=== PATIENT | male | born 1960 | race Caucasian/White ===

== ENCOUNTER 2018-06-15 22:46 | Observation (INO) ==
[2018-06-15] MEDS ORDERED: NS 1,000 ML IV SCH (23:30)
[2018-06-15 23:52] LABS: BASO# 0.04 X1000 (0.0-0.2); BASO% 0.3 % (0.0-0.8); EOS# 0.24 X1000 (0.0-0.7); HEMATOCRIT 49.9 % (42.0-52.0); HEMOGLOBIN 16.4 g/dL (14.0-18.0); IMM GRAN# 0.02 X1000 (0.0-0.04); IMM GRAN% 0.2 % (0.0-0.5); LYMPH# 2.02 X1000 (1.2-3.4); LYMPH% 17.1 % (20.5-51.1); MCH 29.1 PG (27-31); MCHC 32.9 g/dL (33-37); MCV 88.5 FL (81-99); MONO# 1.41 X1000 (0.11-0.59); MONO% 11.9 % (1.7-9.3); MPV 8.9 FL (7.4-10.4); NEUT# 8.09 X1000 (1.4-6.5); NEUT% 68.5 % (42.2-75.2); PLT 408 X1000 (130-400); RBC 5.64 XMIL (4.7-6.1); RDW 13.1 % (11.5-14.5); WBC 11.82 X1000 (4.8-10.8)
[2018-06-15 23:58] LABS: INR 0.95; PROTIME 13.2 Seconds (11.0-16.0); PTT 29.8 Seconds (22.3-41.8)
[2018-06-16 00:11] LABS: AGAP 14; ALBUMIN 4.7 g/dL (3.5-5.0); ALKALINE PHOSPHATASE 95 U/L (32-122); BUN 10 mg/dL (8-22); CALCIUM 9.3 mg/dL (8.8-10.2); CHLORIDE 96 mmol/L (98-107); COSMO 276; CREATININE 0.7 mg/dL (0.7-1.2); ESTIMATED GFR > 60; GLUCOSE 115 mg/dL (70-104); GOT 14 U/L (10-34); GPT 13 U/L (10-44); POTASSIUM 4.6 mmol/L (3.5-5.1); SODIUM 138 mmol/L (136-145); TCO2 28 mmol/L (25-35); TOTAL PROTEIN 8.4 g/dL (6.3-8.3)
[2018-06-16 00:25] LABS: OCCULT BLOOD 1 POSITIVE (NEGATIVE)
[2018-06-16] MEDS ORDERED: FLAGYL 500 MG/NS 500 MG/100 ML IVPB IV ONE (02:41)
[2018-06-16] MEDS ORDERED: CIPRO 400 MG/D5W 400 MG/200 ML IVPB IV ONE (02:42)
--- NOTE | 2018-06-16 02:49 | PROVIDER DOCUMENTATION ---
This chart was entered by Enedelia Mondragon Scribe, acting as scribe for Manuelito Parra DO. HPI-Abdominal Pain/GI Problem - General Chief Complaint: Rectal Bleeding Stated Complaint: MALE Time Seen by Provider: 06/15/18 23:30 Source: patient Allergies/Adverse Reactions: Patient Allergies Allergy/AdvReac Type Severity Reaction Status Date / Time No Known Allergies Allergy Verified 06/15/18 23:07 Home Medications: Home Medication List Medication Instructions Recorded Confirmed Last Taken Type Amlodipine Besylate/Benazepril 1 cap PO DAILY 06/15/18 06/15/18 Unknown History [Amlodipine-Benazepril 5-20 mg] Fluticasone/Salmet 250/50 INH 1 applicatn INH BID 06/15/18 06/15/18 Unknown History [Advair 250/50 Diskus] Gemfibrozil [Lopid] 600 mg PO DAILY 06/15/18 06/15/18 Unknown History Hydrocodone Bit/Acetaminophen 1 tab PO Q4HR 06/15/18 06/15/18 Unknown History [Hydrocodon-Acetaminophn 10-325] Ipratropium/Albuterol Sulfate 4 gm INH Q4H 06/15/18 06/15/18 Unknown History [Combivent Respimat 20-100 Mcg] Omeprazole 40 mg PO DAILY 06/15/18 06/15/18 Unknown History ROSUVAstatin [Crestor] 10 mg PO HS 06/15/18 06/15/18 Unknown History Vardenafil HCl 20 mg PO DAILY 06/15/18 06/15/18 Unknown History - History of Present Illness-ABD Nature of Presenting Problems: Pt is 57/M presenting to ED w/ rectal bleeding that has been present since this afternoon. He sts that it is bright red in the toilet and that he has not had a BM. Sts that he had been on 600mg of ibuprofen every 6 hrs since last for dental pain. Denies any ABD pain. No significant GI hx Quality of Pain: reports: none Onset/Duration: reports: this afternoon Timing: reports: still present Activities at Onset: reports: none Exposure to sick contacts?: No Modifying Factors: improves with: nothing Associated Symptoms: denies: chest pain, cough, dizziness, fever/chills, nausea, vomiting Last BM: unsure Dark Stools Present?: reports: maroon, bright red blood Rectal Bleeding: reports: bleeding without stool Rectal Pain: reports: none Emesis Description: reports: none Bruising or Bleeding Gums?: No Similar Symptoms Previously?: No Recently seen or treated by another doctor?: No Review of Systems - Adult - REVIEW OF SYSTEMS - ADULT Constitutional: reports: no symptoms reported. denies: chills, fever Eyes: reports: no symptoms reported Ears, Nose, Mouth & Throat: reports: no symptoms reported Cardiovascular: reports: no symptoms reported. denies: chest pain, edema Respiratory: reports: no symptoms reported. denies: cough, shortness of breath, wheezing Gastrointestinal: reports: rectal bleeding. denies: abdominal pain, hematemesis, diarrhea, nausea, vomiting Genitourinary: reports: no symptoms reported Musculoskeletal: reports: no symptoms reported Integumentary: reports: no symptoms reported Neurological: reports: no symptoms reported. denies: dizziness/vertigo, headache/migraines Psychiatric: reports: no symptoms reported Endocrine: reports: no symptoms reported Hematologic/Lymphatic: reports: no symptoms reported Allergic/Immunologic: reports: no symptoms reported All Other Systems: Reviewed and Negative Past History - Adult - PAST MEDICAL HISTORY-ADULT Review of Records: reports: Old Records Reviewed, Nursing Assessment Review, Medications Reviewed, Social history reviewed & non-contributory. Major Childhood Illnesses: reports: denies history Cardiovascular: reports: denies history - SOCIAL HISTORY Smoking: cigarettes Substance Use: none/never Alcohol Use Frequency: never Living Situation: family Physical Exam-General - PHYSICAL EXAM-ADULT Initial Vital Signs Reviewed: Yes - CONSTITUTIONAL General Appearance: appears well, alert, no apparent distress - EYES Eyes: PERRL/EOMI, pink conjunctivae - HEAD, EARS, NOSE, MOUTH & THROAT HENMT: normocephalic/atraumatic, moist mucous membranes, TM abnormal (L TM effusion), maxillary tenderness (R maxillary), other (pt has healing dental sites in molars, from tooth extractions) - RESPIRATORY Respiratory: chest non-tender, normal breath sounds, wheezing (expitory base wheezes and inspitory R upper lobe on R side) - CARDIOVASCULAR Cardiovascular: regular rate, rhythm - GASTROINTESTINAL (ABDOMEN) Abdominal Exam: normal bowel sounds, non tender, soft - GENITOURINARY Rectal Exam: normal rectal tone, other (maroon colored stool.). negative: black stool, blood streaked stool, decreased tone, mass, tenderness Hemoccult Exam: heme positive stool - LYMPHATIC Lymphatic: no adenopathy - MUSCULOSKELETAL Extremity: normal range of motion, non-tender, normal gait, normal inspection - SKIN Integumentary: normal color, warm/dry - NEUROLOGIC Neurologic: grossly normal - PSYCHIATRIC Psych/Mental Status: normal mood/affect, normal thought content, normal thought process, oriented x 3 Progress - PLAN OF CARE/RESULTS Progress/Plan/Lab Results: Vital Signs - 8 hr 06/15/18 23:02 Temperature 98.1 F Pulse Rate 89 Respiratory Rate 20 Blood Pressure 194/97 O2 Sat by Pulse Oximetry 92 L Orders Category Date Time Status CBC WITH ELECTRONIC DIFF [HEME] Stat Lab 06/15/18 23:30 Results COMPREHENSIVE METABOLIC PANEL [CHEM] Stat Lab 06/15/18 23:30 Received OCCULT BLOOD SCREEN STOOL PL Stat Lab 06/15/18 23:29 Uncollected PROTIME WITH INR [COAG] Stat Lab 06/15/18 23:30 Received PTT [COAG] Stat Lab 06/15/18 23:30 Received TYPE & SCREEN [BBK] Stat Lab 06/15/18 23:30 Received 0.9% Sodium Chloride Inj [Ns] 1,000 ml Med 06/15/18 23:30 Active IV 125 mls/hr GI Bleed (possible) Stat Oth 06/15/18 23:28 Ordered Result Diagrams: 06/15/18 23:30 06/15/18 23:30 - REASSESSMENT Reassessment #1 Status: improving (WITH HYDRATION/ANTIBIOTICS DISCUSSED CT-SCAN WITH PATIENT AND PATIENT HAS AGREED TO STAY IN PATIENT FOR TREATMENT) - CONSULTS/PCP/HOSPITALIST Notification #1 *Consult/PCP/Hospitalist*: DR HYMAN Time Discussed: 02:48 (ADMISSION ) Departure - Departure Date of Disposition Decision: 06/16/18 Time of Disposition Decision: 02:49 DIAGNOSIS: Acute hemorrhagic colitis Disposition: ADMITTED INPATIENT 09 Certified Medical Emergency: Emergent Condition: Stable Referrals and Follow-Ups: Bright Riddle MD [Primary Care Provider] - - Critical Care Note This patient required my direct & personal management of CC.: No Attestation - Physician/ NEEL Attestation Patient care was provided by Advanced Practice Provider:: No The physician spent face to face time with patient:: Yes Advanced Practice Provider documentation review:: Supervising physician onsite and consulted in the evaluation and care of this patient. The physician did have a face to face encounter with the patient. This chart was documented by the indicated scribe, (Enedelia Mondragon, Dean) and accurately reflects the services I performed and decisions made by me, Maunelito Parra DO, as attested by the provider's signature.
[2018-06-16] MEDS ORDERED: NICODERM PATCH TD ONE (03:12)
[2018-06-16] MEDS ORDERED: TYLENOL PO PRN ×2 (04:32→11:00)
[2018-06-16] MEDS ORDERED: NS 1,000 ML IV ONE (04:32)
[2018-06-16] MEDS ORDERED: ZOFRAN PO PRN ×2 (04:32→11:00)
--- NOTE | 2018-06-16 06:31 | Diag Imaging Result Doc PS360 ---
EXAM: CT ABD/PELVIS W/PO AND IV CON HISTORY: LOWER GI BLEED TECHNIQUE: CT abdomen and pelvis with intravenous contrast COMPARISON: None. FINDINGS: No calcified gallstones or adjacent inflammation. There is fatty infiltration of the liver. Normal spleen, pancreas, adrenal glands, and kidneys except for a 4.5 cm left lower pole renal cyst and a tiny nonspecific 5 mm nodule anteriorly in the lower right kidney. No hydronephrosis. No aortic aneurysm. Moderate atherosclerosis. No inflammation about the cecum. No abscess. There is thickening to the wall of the descending colon with mild adjacent inflammation. The urinary bladder is only moderately distended. Questionable mild thickening to the wall. Normal prostate size with small internal calcifications. No pelvic mass. Mild degenerative changes to the spine. IMPRESSION: 1.Descending colitis without free air or an adjacent abscess. 2.Fatty infiltration of the liver 3.Left renal cysts with likely a tiny right renal cyst 4.Possible cystitis 5.A preliminary report was given at 2:39 AM This exam was performed using automated exposure control, adjustment of mA or kV according to patient size, and/or use of iterative reconstruction technique. Electronically signed by Rony Sanchez 06/16/2018 6:29 AM
[2018-06-16 07:18] LABS: BASO# 0.04 X1000 (0.0-0.2); BASO% 0.4 % (0.0-0.8); EOS# 0.15 X1000 (0.0-0.7); EOS% 1.4 % (0.0-10.0); HEMATOCRIT 48.6 % (42.0-52.0); HEMOGLOBIN 16.6 g/dL (14.0-18.0); IMM GRAN# 0.02 X1000 (0.0-0.04); IMM GRAN% 0.2 % (0.0-0.5); LYMPH# 1.95 X1000 (1.2-3.4); MCHC 34.2 g/dL (33-37); MCV 87.9 FL (81-99); MONO# 1.25 X1000 (0.11-0.59); MONO% 11.5 % (1.7-9.3); MPV 8.6 FL (7.4-10.4); NEUT# 7.45 X1000 (1.4-6.5); NEUT% 68.5 % (42.2-75.2); PLT 409 X1000 (130-400); RBC 5.53 XMIL (4.7-6.1); RDW 13.1 % (11.5-14.5); WBC 10.86 X1000 (4.8-10.8)
[2018-06-16 07:32] LABS: AGAP 12; ALBUMIN 4.3 g/dL (3.5-5.0); ALKALINE PHOSPHATASE 96 U/L (32-122); BUN 7 mg/dL (8-22); CHLORIDE 100 mmol/L (98-107); COSMO 275; CREATININE 0.6 mg/dL (0.7-1.2); ESTIMATED GFR > 60; GLUCOSE 115 mg/dL (70-104); GOT 11 U/L (10-34); GPT 12 U/L (10-44); SODIUM 138 mmol/L (136-145); TCO2 27 mmol/L (25-35); TOTAL PROTEIN 7.9 g/dL (6.3-8.3)
--- NOTE | 2018-06-16 08:58 | Diag Imaging Result Doc PS360 ---
EXAM: CHEST-2 VIEWS HISTORY: r/o pna; leukocytosis TECHNIQUE: Chest two views COMPARISON: 01/30/2018 FINDINGS: The lungs are well expanded. The heart is not enlarged. The vessels are not distended. There are no infiltrates. No pleural effusions. IMPRESSION: No pneumonia Electronically signed by Rony Sanchez 06/16/2018 8:56 AM
[2018-06-16] MEDS ORDERED: LOTENSIN PO SCH (09:00)
[2018-06-16] MEDS ORDERED: NORCO-10 PO PRN ×2 (09:00→10:57)
[2018-06-16] MEDS ORDERED: PROTONIX 80 MG in NS 80 ML IV SCH ×2 (09:00→18:00)
[2018-06-16] MEDS ORDERED: NORVASC PO SCH (09:00)
--- NOTE | 2018-06-16 09:30 | HISTORY AND PHYSICAL ---
PRIMARY CARE PHYSICIAN: Dr. Riddle BUILDING CARPENTER HELPER: Dr. Quintana CHIEF COMPLAINT: Rectal bleeding. HISTORY OF PRESENT ILLNESS: Mr. Benjamín Damian is a 57-year-old male with a medical history of hypertension, COPD and hyperlipidemia, GERD, who presents with complaints of rectal bleeding. He states that last , he had 3 teeth extracted, 2 from the top right and 1 from the bottom left, and was prescribed ibuprofen and [place] 10 to alternate for pain control. Since then, he has had decreased appetite. His last bowel movement which was normal was Saturday night and then on Saturday morning, he had a moderate amount of bloody stool. At that point, he stopped taking all of his pain medication including the [place] and the ibuprofen. And then again presented yesterday again with a complaint of bright red blood in the toilet without bowel movement. He denies any abdominal pain. He had a CT performed which showed descending colitis without free air or abscess. He had elevated white blood cell count and was initiated on colitis treatment including Flagyl and Cipro that were initiated in the ER. Once again, a couple of hours ago, he had a large amount of bright red blood in stool. Currently hemoglobin and hematocrit are completely normal and stable. But given the amount of blood volume he describes, we will transfer him to [facility] and consult Gastroenterology. According to the patient, around a month or so ago, he had a colonoscopy that was performed with Dr. Quintana, so that is who we will consult. The patient denies having any reported abnormal results. He states that there was nothing wrong with his results that concerned the physician at the time. Vital signs are stable. We will do clear liquids and once seen by Gastroenterology may eventually have to have another colonoscopy, but hopefully with Protonix drip, stopping the ibuprofen that he has been on, Carafate and antibiotics will help resolve the issue. PAST MEDICAL HISTORY: 1. Hypertension. 2. COPD. 3. Hyperlipidemia. 4. GERD. PAST SURGICAL HISTORY: 1. Tonsillectomy. 2. Two months ago, colonoscopy that routine, performed by Dr. Quintana as outpatient. 3. Three teeth extracted, 2 from the top right and 1 from the bottom left. SOCIAL HISTORY: One pack per day smoker since the age of 16. Denies alcohol or illicit drug use. He is currently with this who is at the bedside. FAMILY HISTORY: Mother had hypertension. Father had diabetes, coronary artery disease, hypertension, and skin cancer. ALLERGIES: No known drug allergies. HOME MEDICATIONS: 1. [place] 10 one tab p.o. every 4 hours p.r.n. 2. Advair inhaled. 3. Gemfibrozil 600 mg p.o. daily. 4. Omeprazole 40 mg p.o. daily. 5. Crestor 10 mg p.o. nightly. 6. Vardenafil 20 mg p.o. likely p.r.n. for erectile dysfunction. 7. Amlodipine besylate/benazepril 5/20 mg 1 tab p.o. daily. 8. Advair 250/50 inhaled twice daily. 9. Albuterol, Atrovent, Combivent inhaled every 4 hours. REVIEW OF SYSTEMS: A 14-point review of systems are complete, and all were negative except for those mentioned in the above HPI. The only complaint he has is the bloody stool or rectal bleed. He denies having any abdominal pain. He denies any other pain. He also denies having tooth pain. He states that he never even had pain after the oral surgery teeth extraction due to scheduling his pain medication. PHYSICAL EXAMINATION: VITAL SIGNS: Temperature is 98.8, heart rate 91, respiratory rate 18, blood pressure 150/88, O2 saturation 95% on room air. Height 5 feet 10 inches tall. Weight 224 pounds. BMI is 32.1. GENERAL: Mr. Benjamín Damian is a 57-year-old male. He is in no acute distress. He is able to answer questions appropriately. HEENT: Atraumatic and normocephalic. Pupils are equal, round and reactive to light. Extraocular movements were intact. Mucous membranes are dry. NECK: Trachea is midline. CARDIOVASCULAR: S1 and S2. Regular rate and rhythm. No rubs, gallops or murmurs. No lower extremity edema. Plus 2 dorsalis and radial pulses. Negative JVD or carotid bruits. PULMONARY: Clear to auscultation with bilateral breath sounds. No accessory muscle use or work of breathing noted. GASTROINTESTINAL: Soft, nontender and nondistended. Positive bowel sounds x4. EXTREMITIES: Moves all extremities equally. Full range of motion. NEUROLOGICAL: Alert and oriented x3. Follows commands. Sensory is intact. SKIN: Warm, dry and intact. DIAGNOSTIC DATA: White blood cells 10,000, hemoglobin 16, hematocrit 48, platelet count 409. INR is 0.95. PTT is 29.8. Sodium 138, potassium 4.0, BUN is 7, creatinine 0.6, glucose 115, calcium 9.0, bilirubin 0.40, AST is 11, ALT is 12, albumin 4.3. Stool for occult blood positive. IMAGING: Abdominopelvic CT with descending colitis, without free air or adjacent abscess. Fatty infiltration of the liver. Left renal cyst, likely with tiny renal cyst on the right. Possible cystitis. ASSESSMENT AND PLAN: 1. Rectal bleeding with diagnosis of descending colitis with hemoglobin stable. He is on Cipro and Flagyl. For the bleeding, he is on Carafate and Protonix drip. We will do serial hemoglobin and hematocrit. We will consult Dr. Quintana who has seen him recently at least 2 months ago. Current type and screen if needed, but his hemoglobin and hematocrit are currently stable. Currently on clear liquid diet and on IV fluid hydration saline at 100 mL per hour. 2. Possible cystitis but denies any symptoms. Urinalysis ordered and currently is on appropriate IV antibiotics to treat that as well. 3. Chronic obstructive pulmonary disease. No exacerbation. Denies any shortness of breath. We will continue his home medication regimen for that. 4. Tobacco abuse. Cessation discussed. He has a nicotine patch that was applied this morning. 5. Hypertension. Continue his amlodipine and his benazepril. Kidney function is normal at this time. 6. Gastroesophageal reflux disease. Currently on a Protonix drip. 7. Hyperlipidemia with report of hepatic steatosis on the CT. Probably will needs his medications resume but currently are on hold. Liver enzymes are normal. 8. DVT prophylaxis with SCDs. 9. Recent teeth extraction. Denies any pain from that. No signs or symptoms of infection. 10.Leukocytosis. We will follow up on chest x-ray and blood cultures, but likely all due to the colitis. Also follow up on urinalysis given report of possible cystitis on CT. Dictated by JEAN-PIERRE Chance for Lars Tsang MD Addendum: Patient seen and examined by myself. Agree with JEAN-PIERRE note. It reflects my assessment and plan. Patient is being admitted to hospital for GI bleeding, apparently patient has a rectal bleeding that could be lower GI bleed. Will provide IV fluids and will consult GI. Will transfer this patient to [facility] so he will be seen by his primary care doctor as well. cc: JEAN-PIERRE Chance MD Gregory S. Cheatham, MD MTDD
[2018-06-16] MEDS ORDERED: NS 1,000 ML IV SCH (11:00)
[2018-06-16] MEDS ORDERED: CARAFATE LIQUID PO SCH (11:00)
[2018-06-16] MEDS ORDERED: DUONEB (A & A) INH SCH (11:30)
[2018-06-16] MEDS: DUONEB (A & A) INH SCH ×4 (11:51→23:20)
[2018-06-16 11:57] LABS: URINE SOURCE CLEAN CATCH
[2018-06-16] MEDS: CARAFATE LIQUID PO SCH ×3 (12:00→21:24)
[2018-06-16 12:08] LABS: BILIRUBIN URINE NEGATIVE (NEGATIVE); BLOOD URINE NEGATIVE (NEGATIVE); COLOR YELLOW; GLUCOSE URINE NEGATIVE (NEGATIVE); KETONE URINE 20 mg/dL (NEGATIVE); LEUKOCYTES URINE NEGATIVE (NEGATIVE); NITRITE URINE NEGATIVE (NEGATIVE); PH URINE 6.5; PROTEIN URINE TRACE mg/dL (NEGATIVE); SP GRAVITY URINE 1.011; TURBIDITY URINE CLEAR (CLEAR); UROBILINOGEN URINE NORMAL (NORMAL)
[2018-06-16 12:09] LABS: UR EPITHELIAL CELLS <10 /HPF (<10); URINE BACTERIA NEGATIVE /HPF; URINE RBC <10 /HPF (<10); URINE WBC <10 /HPF (<10)
--- NOTE | 2018-06-16 12:48 | GASTROENTEROLOGY CONSULTATION ---
DATE: 06/16/2018 GASTROENTEROLOGY INPATIENT CONSULTATION: DICTATING PHYSICIAN: Boogie Quintana MD REQUESTING PHYSICIAN: Bright Riddle MD PRIMARY CARE DOCTOR: Bright Riddle MD REASON FOR CONSULTATION: Rectal bleeding. HISTORY OF PRESENT ILLNESS: Mr. Damian is a 57-year-old male who was admitted on 06/15/2018 for new onset of rectal bleeding. The patient had a recent tooth extraction on last . At that time, he was given ibuprofen 400 mg every 4 hours as well as some Arbon 10/325 mg Q4 hours to take for pain control. The patient took the medicines as advised and on Saturday morning started having rectal bleeding. He was passing gas and a minimal amount of stool blood but lots of blood. He had 4 episodes on Saturday, and today this morning he had 1 large episode of rectal bleeding which prompted him to be transferred to [facility]. Initially, he was admitted at [facility] and was transferred to [facility] today. During this admission, patient had a CT scan done, which showed evidence of descending colitis without free air or abscess. The patient was started on antibiotics with Cipro and Flagyl. The patient did have a history of recent EGD and colonoscopy done in March 2018. At that time, he was found to have a colon polyp and found a GE junction nodule, reflux disease, gastritis, and duodenal nodule. The biopsies showed gastritis, benign duodenal nodule, and tubular adenoma. The patient denies any abdominal pain, nausea, vomiting, or vomiting blood. PAST MEDICAL HISTORY: Hypertension, COPD, hyperlipidemia, reflux disease, GE junction nodule, internal hemorrhoids, colon polyps, gastritis. PAST SURGICAL HISTORY: 1. Tonsillectomy. 2. EGD and colon done on March 2018. 3. Three teeth extracted on , 2 from the top right and one from the bottom left. SOCIAL HISTORY: He smokes 1 pack a day. He has done this since age 16. He denies history of alcohol or illicit drug abuse. He is . His family is at bedside. FAMILY HISTORY: Mother has hypertension. Father had diabetes, coronary disease, hypertension, skin cancer. ALLERGIES: No known drug allergies. MEDICATIONS AT HOME: Include [place]bon 10 every 4 hours as needed. Advair inhaled, gemfibrozil, omeprazole, Crestor, vardenafil, amlodipine/benazepril, albuterol/Atrovent, Combivent inhaler. MEDICATIONS IN THE HOSPITAL: Include normal saline 100 mL per hour, Tylenol, albuterol/ipratropium inhaler, Norvasc, Lotensin, ciprofloxacin 400 mg IV q.12 h., Fluticasone/salmeterol inhaled b.i.d. hydrocodone/acetaminophen 10 mg every 4 hours as needed, Flagyl 5 mg IV q.12 h., Zofran 4 mg IV q.6 h. as needed, Protonix drip at 10 mg per hour, Carafate 1 g before meals and at bedtime. DIET: The patient is currently on clear liquid diet. REVIEW OF SYSTEMS: Denies any fevers, rigors, chills, chest pain, shortness of breath, dyspnea. Denies any vomiting blood. Did have blood in the stools. Denies any abdominal pain. Denies any major arthritis. Denies any neurologic complaints. PHYSICAL EXAMINATION: Vital signs: Temperature of 98.2, pulse rate of 78, respiratory rate 20, blood pressure 150/75, saturating 94% on room air. Body weight: 224 pounds, BMI 32.1 kg/m2. General: Patient is moderately built and nourished, lying in bed, in no acute distress. HEENT: No pallor. No icterus. Pupils equal, reactive to light. Neck: Supple. Abdomen: Obese, soft, nontender, nondistended. No guarding or rebound. Extremities: No cyanosis, clubbing. Neurological: Alert, awake, oriented x3. DIAGNOSTIC STUDIES: Hemoglobin 16.6, hematocrit 48.6, white count of 10.86, platelet count of 409,000. Sodium 138, potassium 4, chloride 100, bicarbonate 27, anion gap 12, BUN of 7, creatinine 0.6, glucose of 115, calcium is 9, total bilirubin is 0.4, AST 11, ALT 12, alkaline phosphatase is 96, total protein 7.2, albumin of 4.3. Lactate of 0.6. Stool for occult blood was positive. CT of the abdomen and pelvis done and showed: 1. Descending colitis without free air or adjacent abscess. 2. Fatty infiltration of liver. 3. Left renal cyst. 4. Likely tiny right renal cysts. 5. Possible cystitis. 6. Mild degenerate changes of the spine. IMPRESSION AND PLAN: 1. Rectal bleeding. 2. Colitis in the descending colon. 3. Fatty infiltration of the liver. 4. Obesity. 5. Chronic smoker. 6. Reflux disease. 7. Gastroesophageal junction nodule. 8. History of colon polyps. 9. Recent tooth extraction, put on [place] 10/325 mg every 4 hours and ibuprofen every 4 hours. RECOMMENDATIONS: 1. We will keep him on clear liquid diet. We will keep him on Protonix for now. We counseled patient to quit NSAIDs. We also counseled to quit smoking completely. 2. We will check stool studies. We will schedule him for flexible sigmoidoscopy/colonoscopy tomorrow by Dr. Rowley. The risks, benefits, indications, and alternatives to the procedure were discussed with the patient and family, and all questions were answered. The patient acknowledged and agreed to proceed with the above. 3. We will continue on hypertension medication and albuterol/ipratropium inhalation every 4 hours per the primary care team. Further recommendations to follow pending hospital course. The above plan of care was discussed with the patient and family at bedside and all questions were answered. Thank you for allowing us to participate in the care of this patient. Please call with any further questions. cc: MD Bright Toribio MD MTDD
[2018-06-16] MEDS ORDERED: GOLYTELY PO ONE (14:00)
[2018-06-16] MEDS ORDERED: FLAGYL 500 MG/NS 500 MG/100 ML IVPB IV SCH (14:00)
[2018-06-16 14:12] LABS: HEMATOCRIT 48.4 % (42.0-52.0); HEMOGLOBIN 15.9 g/dL (14.0-18.0)
[2018-06-16] MEDS ORDERED: CIPRO 400 MG/D5W 400 MG/200 ML IVPB IV SCH (15:00)
[2018-06-16] MEDS: FLAGYL 500 MG/NS 500 MG/100 ML IVPB IV SCH (15:00)
[2018-06-16] MEDS: CIPRO 400 MG/D5W 400 MG/200 ML IVPB IV SCH (15:11)
[2018-06-16] MEDS ORDERED: ADVAIR 250/50 DISKUS INH SCH (19:30)
[2018-06-16] MEDS: ADVAIR 250/50 DISKUS INH SCH (19:40)
[2018-06-17 00:16] LABS: HEMATOCRIT 46.9 % (42.0-52.0); HEMOGLOBIN 15.6 g/dL (14.0-18.0)
[2018-06-17] MEDS: FLAGYL 500 MG/NS 500 MG/100 ML IVPB IV SCH ×3 (00:46→13:20)
[2018-06-17 01:06] LABS: HEMATOCRIT 46.2 % (42.0-52.0); HEMOGLOBIN 15.4 g/dL (14.0-18.0)
[2018-06-17] MEDS: CIPRO 400 MG/D5W 400 MG/200 ML IVPB IV SCH ×2 (02:25→15:04)
[2018-06-17] MEDS: DUONEB (A & A) INH SCH ×4 (03:17→16:16)
[2018-06-17] MEDS: CARAFATE LIQUID PO SCH ×3 (06:13→16:05)
[2018-06-17 06:45] LABS: HEMATOCRIT 47.1 % (42.0-52.0); HEMOGLOBIN 15.4 g/dL (14.0-18.0)
[2018-06-17] MEDS: ADVAIR 250/50 DISKUS INH SCH (08:01)
[2018-06-17] MEDS ORDERED: XYLOCAINE-MPF 2% ONE (08:35)
[2018-06-17] MEDS ORDERED: DIPRIVAN 1% ONE ×2 (08:35→08:43)
[2018-06-17] MEDS ORDERED: ROBINUL ONE (08:35)
[2018-06-17] MEDS ORDERED: FENTANYL ONE (08:35)
[2018-06-17] MEDS ORDERED: LOTENSIN PO SCH (09:00)
[2018-06-17] MEDS ORDERED: NORVASC PO SCH (09:00)
[2018-06-17] MEDS: LOTENSIN PO SCH ×2 (09:19→10:47)
[2018-06-17] MEDS ORDERED: ZOFRAN ONE (09:56)
[2018-06-17 11:15] VITALS: BP 118/76
--- NOTE | 2018-06-17 12:44 | OPERATIVE NOTE ---
PROCEDURE DATE: 06/17/2018 PROCEDURE: Colonoscopy. PROVIDER: Miguel Ángel Rowley MD. INDICATIONS: Rectal bleeding and colitis on imaging. MEDICATIONS: Monitored anesthesia care. DESCRIPTION OF PROCEDURE: Prior to the procedure, a history and physical was performed. The patient's medications and allergies were reviewed. The patient's tolerance of previous anesthesia was also reviewed. The risks and benefits of the procedure, and sedation options and risks were discussed with the patient. All questions were answered. Informed consent was obtained. After reviewing the risks and benefits, the patient was deemed in satisfactory condition to undergo the procedure. The colonoscope was passed under direct visualization. Throughout the procedure, the patient's blood pressure, pulse and oxygen saturation were monitored continuously. The colonoscope was introduced through the anus and advanced to the cecum identified by the appendiceal orifice and ileocecal valve. The colonoscopy was accomplished without difficulty. The patient tolerated the procedure well. The quality of the prep was adequate. COMPLICATIONS: No immediate complications. ESTIMATED BLOOD LOSS: Minimal. FINDINGS: There was moderate colitis with skip lesions and superficial ulcerations found from 30 cm to 60 cm from the anal verge. Random biopsies were obtained with cold biopsy forceps to evaluate for inflammatory bowel disease versus ischemic colitis versus infectious colitis. The rest of the colonoscopy was normal particularly in the right colon. IMPRESSION: Left-sided colitis, biopsied. This is likely secondary to copious NSAID use. RECOMMENDATIONS: Await pathology results. Advanced to a GI soft diet for the next 2 weeks, and then can resume regular diet. Transition IV antibiotics to oral vancomycin and Cipro, and continue for 10 to 14 days for empiric therapy. Avoid NSAIDs. Follow up with Dr. Quintana in 1 to 2 weeks upon discharge. We will sign off. Please call with any questions or concerns. Findings and recommendations were discussed with the patient and primary team. cc: Bright Riddle MD
[2018-06-17 13:28] LABS: HEMATOCRIT 46.9 % (42.0-52.0); HEMOGLOBIN 15.5 g/dL (14.0-18.0)
--- NOTE | 2018-06-17 13:57 | PROGRESS NOTE ---
DATE: 06/17/2018 SUBJECTIVE: Patient doing well status post colonoscopy this morning per Dr. Rowley. The colonoscopy revealed left-sided colitis likely related to NSAID use that was prescribed and recommended by his dentist as he had several teeth removed from on the right side of his mouth in the last few days. He is not requiring pain medication for that now currently. OBJECTIVE: Afebrile. Vital signs stable.CV: RRR without definite murmur. Lungs: CTA. Abdomen: Nontender and nondistended. Extremities: No calf tenderness, cords or edema. Neurologic: Nonfocal. Cranial nerves are intact. LABORATORY DATA: Hemoglobin is stable generally at 15.5. ASSESSMENT: 1. Rectal bleeding with descending colitis, thought related to NSAID use, stable on Cipro and Flagyl, and confirmed by colonoscopy. 2. Hypertension. 3. Chronic obstructive pulmonary disease. 4. Gastroesophageal reflux disease. 5. Hyperlipidemia. 6. Fatty liver. 7. Recent teeth extraction. PLAN: Discharge the patient on 12 more days of Cipro and Flagyl, and his home medications later on this afternoon after he completes his IV Cipro and Flagyl that is currently going in. He will follow up with me in a week and Dr. Quintana in about 2 weeks. We reiterated the need to avoid any and all NSAIDs. cc: Bright Riddle MD
[2018-06-19] MEDS ORDERED: PROTONIX IV SCH ×2 (08:15→10:00)
== END 2018-06-17 16:08 | disposition home or self-care (01) ==
LOC: P.ED 22:46 → SUATTDRO 22:47 → INTOOBSV 22:47 → P.MEDSURG 06-16 04:11 → 4N 06-16 10:44
PROVIDERS: ADMIT Family Medicine; ATTEND Family Medicine
CPT/HCPCS: 36415; 71020; 71046; 74177; 80053; 81001; 82270; 83605; 85014; 85018; 85025; 85610; 85730; 86850; 86900; 86901; 87040; 88305; 88313; 94640; 94761; 96361; 96365; 96368; 99285; A9270; C9113; J0744; J2405; J3010; J7030; S0030; S0164

== ENCOUNTER 2019-02-22 21:46 | Inpatient (IN) ==
[2019-02-22] MEDS ORDERED: DUONEB (A & A) INH ONE ×2 (21:57)
[2019-02-22] MEDS ORDERED: ZOSYN 3.375 GM in NS 50 ML IV ONE (21:58)
[2019-02-22] MEDS ORDERED: PULMICORT INH ONE (21:58)
[2019-02-22] MEDS ORDERED: VANCOMYCIN 1 GM/NS 1 GM/250 ML IVPB IV ONE (21:58)
--- NOTE | 2019-02-22 22:20 | PROVIDER DOCUMENTATION ---
This chart was entered by Federica Mcgarry Scribe, acting as scribe for Nella Jasso CRNP. HPI-Rash/Wound/ReCheck - General Chief Complaint: Shortness of Breath Stated Complaint: RETURN/RECHECK SOB Time Seen by Provider: 02/22/19 21:54 Source: patient Allergies/Adverse Reactions: Allergies Allergy/AdvReac Type Severity Reaction Status Date / Time No Known Allergies Allergy Verified 06/15/18 23:07 Home Medications: Home Medication List Medication Instructions Recorded Confirmed Last Taken Type Amlodipine Besylate/Benazepril 1 cap PO DAILY 06/15/18 02/22/19 Unknown History [Amlodipine-Benazepril 5-20 mg] Fluticasone/Salmet 250/50 INH 1 applicatn INH BID 06/15/18 02/22/19 Unknown History [Advair 250/50 Diskus] Gemfibrozil [Lopid] 600 mg PO BID 06/15/18 02/22/19 Unknown History Ipratropium/Albuterol Sulfate 4 gm INH Q4H 06/15/18 02/22/19 Unknown History [Combivent Respimat 20-100 Mcg] Omeprazole 40 mg PO DAILY 06/15/18 02/22/19 Unknown History ROSUVAstatin [Crestor] 10 mg PO HS 06/15/18 02/22/19 Unknown History Vardenafil HCl 20 mg PO DAILY 06/15/18 02/22/19 Unknown History Ranitidine HCl 300 mg PO DAILY 06/16/18 02/22/19 Unknown History Acetaminophen [Tylenol] 650 mg PO Q6H PRN PRN tab 06/17/18 02/22/19 Unknown Rx Ciprofloxacin HCl [Cipro] 500 mg PO BID #24 tab 06/17/18 02/22/19 Unknown Rx Hydrocodone/APAP 10 mg/325 mg 1 ea PO Q4H PRN PRN tab 06/17/18 02/22/19 Unknown Rx [[place]-10] Metronidazole [Flagyl] 500 mg PO BID #24 tab 06/17/18 02/22/19 Unknown Rx Doxycycline 100 mg PO BID #20 tab 02/21/19 02/22/19 Unknown Rx - History of Present Illness-Dermatology Nature of Presenting Problem: pt is a 58 yom c/o worsening sob and chest pressure, "feels like an elephant is sitting on him." pt seen in er yest for the same. sob worsens when lying down. pt also c/o nonproductive cough. - Recheck Treated days ago.: 1 Previous Treatment: other Antibiotics given: prescription Symptoms since procedure:: reports: other (worsening sob and chest pressurre) Review of Systems - Adult - REVIEW OF SYSTEMS - ADULT Constitutional: reports: no symptoms reported. denies: fever, fatique, night sweats Eyes: reports: no symptoms reported Ears, Nose, Mouth & Throat: reports: no symptoms reported Cardiovascular: reports: see HPI, chest pain (chest pressure), orthopnea. denies: heart murmur, irregular heart rate, poor circulation Respiratory: reports: see HPI, cough, shortness of breath. denies: dyspnea on exertion, excessive sputum production, hemoptysis Gastrointestinal: reports: no symptoms reported Genitourinary: reports: no symptoms reported Musculoskeletal: reports: no symptoms reported Integumentary: reports: no symptoms reported Neurological: reports: no symptoms reported Psychiatric: reports: no symptoms reported Endocrine: reports: no symptoms reported Hematologic/Lymphatic: reports: no symptoms reported Allergic/Immunologic: reports: no symptoms reported All Other Systems: Reviewed and Negative Past History - Adult - PAST MEDICAL HISTORY-ADULT Review of Records: reports: Nursing Assessment Review, Medications Reviewed, Social history reviewed & non-contributory. Major Childhood Illnesses: reports: denies history Cardiovascular: reports: denies history Respiratory: reports: COPD Gastrointestinal: reports: denies history Obstetrical/Gynecological: reports: denies history Genitourinary: reports: denies history Musculoskeletal: reports: denies history Neurological: reports: denies history Endocrine/Immune: reports: Diabetes Diabetes controlled by:: Diet Other Conditions: reports: denies history - PRIOR SURGERIES/PROCEDURES Surgical/Procedure History: reports: other - IMMUNIZATION STATUS Childhood Immunizations: See Nurse Assessment Flu Vaccine: See Nurse Assessment - FAMILY HISTORY Family History: reviewed, not pertinent - SOCIAL HISTORY Smoking: cigarettes, greater than 1 pack/day Provider spent 3-5 mins advising pt. on dangers of tobacco.: Discussed manners to quit use, and f/u contacts for add'l counseling. Substance Use: none/never Physical Exam-General - PHYSICAL EXAM-ADULT Initial Vital Signs Reviewed: Yes - CONSTITUTIONAL General Appearance: alert, no apparent distress. negative: cachetic, lethargic, slow to respond - EYES Eyes: PERRL/EOMI, pink conjunctivae - HEAD, EARS, NOSE, MOUTH & THROAT HENMT: normocephalic/atraumatic, moist mucous membranes, normal ENT inspection - NECK Neck: non-tender, full range of motion, supple, normal inspection - RESPIRATORY Respiratory: chest non-tender, normal breath sounds, no pleuratic chest pain, no respiratory distress, no accessory muscle use, wheezing (diffuse), increased rate, other (tachypnic). negative: lungs clear, crackles, rales, rhonchi - CARDIOVASCULAR Cardiovascular: normal peripheral pulses, regular rate, rhythm - GASTROINTESTINAL (ABDOMEN) Abdominal Exam: normal bowel sounds, non tender, soft - MUSCULOSKELETAL Back Exam: normal inspection Extremity: normal range of motion, non-tender, normal inspection - SKIN Integumentary: normal color, normal turgor, warm/dry - NEUROLOGIC Neurologic: grossly normal, no motor/sensory deficits - PSYCHIATRIC Psych/Mental Status: normal mood/affect, normal thought content, normal thought process, oriented x 3 Progress - PLAN OF CARE/RESULTS Result Diagrams: 02/22/19 22:26 02/22/19 22:26 - REASSESSMENT Reassessment #1 Time Reassessed: 22:30 (WHEEZING HAS IMPROVED) Status: improving Reassessment #2 Time Reassessed: 00:22 (REMAINS TACHY) Status: unchanged - EKG 1 Time of EKG reading by physician:: 23:09 EKG Read and Signed by:: Joseluis Tristan EKG Interpretation (*Must complete 3 of following elements*): Abnormal Rate: 127 Rhythm: ST [place]: normal QRS: other (LOW VOLTAGE) NM Interval: normal ST Wave: non-specific ST changes (OAWMI) Prior EKG Comparison: no prior EKG - XRAY 1 XRAY Study: Chest Impression: Normal - CONSULTS/PCP/HOSPITALIST Notification #1 *Consult/PCP/Hospitalist*: Dr. Wing Time Discussed: 22:17 Consult Disposition: Admit - CHANGE OF SHIFT REPORT (ED Provider) 1 Report Given and Care Transferred to:: DR TRISTAN Time of Transfer: 01:00 Items Pending: Labs (REPEAT ABG) Departure - Departure Date of Disposition Decision: 02/23/19 Time of Disposition Decision: 00:43 DIAGNOSIS: COPD exacerbation Disposition: ADMITTED INPATIENT 09 Certified Medical Emergency: Emergent Condition: Stable - Critical Care Note This patient required my direct & personal management of CC.: No Attestation - Physician/ NEEL Attestation Patient care was provided by Advanced Practice Provider:: Yes Advanced Practice Provider:: Nella Jasso Advanced Practice Provider documentation review:: The Mid-level provider documentation, treatment plan and medical decision making was reviewed by the physician who agrees with all treatment and medical decision making by the MLP. The physician spent face to face time with patient:: Yes (DR TRISTAN) Advanced Practice Provider documentation review:: Supervising physician onsite and consulted in the evaluation and care of this patient. The physician did have a face to face encounter with the patient. This chart was documented by the indicated scribe, (Federica Mcgarry Scribe) and accurately reflects the services I performed and decisions made by me, Nella Jasso CRNP, as attested by the provider's signature.
[2019-02-22 22:22] LABS: BE -0.4 mmoll (-3.0-3.0); BLOOD TYPE ARTERIAL; HCO3-(ACT) 24.4 mmoll (20.0-26.0); METHB 1.2 % (0.0-1.5); O2(CT) 20.3 mL/dL (15.0-23.0); PO2(98.6) 64 mmHg (60-100); SAMPLE BLOOD; SAO2 95.4 % (95.0-100.0); THB 16.1 g/dL (11.5-17.4); pH(98.6) 7.32 (7.35-7.45)
[2019-02-22 22:24] LABS: PCO2(98.6) 52 mmHg (35-45)
[2019-02-22 22:25] LABS: ALLEN TEST NO; MODALITY CANNULA; O2HB 89.8 % (95.0-99.0)
[2019-02-22] MEDS ORDERED: NS 1,000 ML IV ONE ×2 (22:37→23:29)
[2019-02-22] MEDS: SOLU-MEDROL IV ONE (22:39)
[2019-02-22 22:42] LABS: BASO# 0.01 X1000 (0.0-0.2); BASO% 0.1 % (0.0-0.8); HEMATOCRIT 46.4 % (42.0-52.0); HEMOGLOBIN 14.7 g/dL (14.0-18.0); IMM GRAN# 0.03 X1000 (0.0-0.04); IMM GRAN% 0.2 % (0.0-0.5); LYMPH# 0.77 X1000 (1.2-3.4); LYMPH% 6.4 % (20.5-51.1); MCH 29.4 PG (27-31); MCHC 31.7 g/dL (33-37); MCV 92.8 FL (81-99); MONO# 1.82 X1000 (0.11-0.59); MONO% 15.1 % (1.7-9.3); MPV 8.8 FL (7.4-10.4); NEUT% 78.2 % (42.2-75.2); PLT 334 X1000 (130-400); RDW 13.6 % (11.5-14.5); WBC 12.03 X1000 (4.8-10.8)
[2019-02-22 22:56] LABS: AGAP 15; ALBUMIN 4.6 g/dL (3.5-5.0); ALKALINE PHOSPHATASE 85 U/L (32-122); BUN 16 mg/dL (8-22); CALCIUM 9.1 mg/dL (8.8-10.2); CHLORIDE 102 mmol/L (98-107); COSMO 284; CREATININE 0.7 mg/dL (0.7-1.2); ESTIMATED GFR > 60; GLUCOSE 130 mg/dL (70-104); GOT 31 U/L (10-34); GPT 22 U/L (10-44); MAGNESIUM 1.9 mg/dL (1.5-2.7); POTASSIUM 4.4 mmol/L (3.5-5.1); SODIUM 141 mmol/L (136-145); TCO2 25 mmol/L (25-35); TOTAL PROTEIN 7.5 g/dL (6.3-8.3)
[2019-02-22 22:57] LABS: INR 0.97; PROTIME 13.4 Seconds (11.0-16.0); PTT 31.1 Seconds (22.3-41.8)
[2019-02-22 23:05] LABS: CK PROFILE 952 U/L (24-204)
[2019-02-22 23:23] LABS: CK INDEX 0.5 (0.0-2.5); CK-MB 4.51 ng/mL (0.0-5.0)
[2019-02-22 23:45] LABS: URINE SOURCE CLEAN CATCH
[2019-02-22 23:51] LABS: BILIRUBIN URINE NEGATIVE (NEGATIVE); BLOOD URINE TRACE (NEGATIVE); COLOR YELLOW; GLUCOSE URINE NEGATIVE (NEGATIVE); KETONE URINE NEGATIVE (NEGATIVE); LEUKOCYTES URINE NEGATIVE (NEGATIVE); NITRITE URINE NEGATIVE (NEGATIVE); PROTEIN URINE 30 mg/dL (NEGATIVE); SP GRAVITY URINE 1.027; TURBIDITY URINE CLEAR (CLEAR); UROBILINOGEN URINE NORMAL (NORMAL)
[2019-02-22 23:52] LABS: UR EPITHELIAL CELLS <10 /HPF (<10); URINE BACTERIA NEGATIVE /HPF; URINE RBC <10 /HPF (<10); URINE WBC <10 /HPF (<10)
[2019-02-23] MEDS ORDERED: NS 1,000 ML IV ONE (00:05)
[2019-02-23] MEDS ORDERED: TYLENOL PO ONE (00:30)
[2019-02-23 00:37] LABS: BE -1.8 mmoll (-3.0-3.0); BLOOD TYPE ARTERIAL; HCO3-(ACT) 23.4 mmoll (20.0-26.0); METHB 1.1 % (0.0-1.5); O2(CT) 20.5 mL/dL (15.0-23.0); O2HB 93.1 % (95.0-99.0); PCO2(98.6) 50 mmHg (35-45); PO2(98.6) 86 mmHg (60-100); SAMPLE BLOOD; THB 15.6 g/dL (11.5-17.4); pH(98.6) 7.31 (7.35-7.45)
[2019-02-23 00:40] LABS: ALLEN TEST NO; MODALITY CANNULA
[2019-02-23] MEDS ORDERED: TYLENOL PO PRN (00:42)
[2019-02-23] MEDS ORDERED: ZOFRAN IV PRN (00:42)
[2019-02-23] MEDS: DUONEB (A & A) INH SCH ×6 (03:43→23:40)
[2019-02-23] MEDS: MORPHINE IV PRN ×2 (04:37→07:49)
[2019-02-23] MEDS ORDERED: VANCOMYCIN IV PER PHARMACY MISC SCH (07:29)
--- NOTE | 2019-02-23 08:22 | Diag Imaging Result Doc PS360 ---
EXAM: CHEST-PORTABLE INDICATION: SOB TECHNIQUE: One view COMPARISON: 02/21/2019 FINDINGS: The lungs are grossly clear. There is no discrete pleural fluid collection or pneumothorax. The cardiomediastinal silhouette and central vasculature are grossly unremarkable. IMPRESSION: No evidence of acute pathology by plain radiograph. Electronically signed by Benjamín Mcgarry 02/23/2019 8:20 AM
[2019-02-23] MEDS: ZOSYN 2.25 GM in NS 50 ML IV SCH ×3 (08:39→21:52)
[2019-02-23] MEDS: SOLU-MEDROL IV ONE (08:41)
[2019-02-23] MEDS: SOLU-MEDROL IV SCH ×2 (08:41→17:38)
[2019-02-23] MEDS ORDERED: NORCO-10 PO PRN (08:53)
[2019-02-23] MEDS ORDERED: VANCOMYCIN 2,000 MG in NS 500 ML IV SCH (09:00)
[2019-02-23] MEDS: PEPCID PO SCH (09:36)
--- NOTE | 2019-02-23 09:39 | EKG Report ---
Test Performed on : 02/22/2019 11:06:44 PM Test Reason : CP Blood Pressure : / mmHG Vent. Rate : 127 BPM Atrial Rate : 129 BPM P-R Int : 142 ms QRS Dur : 078 ms QT Int : 302 ms P-R-T Axes : 080 068 069 degrees QTc Int : 438 ms Sinus tachycardia. Septal infarct , age undetermined Abnormal ECG No previous ECGs available Unconfirmed Result
[2019-02-23 09:50] LABS: INFLUENZA A POSITIVE (NEGATIVE); INFLUENZA B NEGATIVE (NEGATIVE)
[2019-02-23] MEDS: LOPID PO SCH ×2 (10:00→21:53)
[2019-02-23] MEDS ORDERED: ATIVAN IV ONE (10:17)
--- NOTE | 2019-02-23 11:37 | HISTORY AND PHYSICAL ---
Shortness of breath PRIMARY CARE PROVIDER: Mekhi Machuca. CHIEF COMPLAINT: Shortness of breath. HISTORY OF PRESENT ILLNESS: Mr. Benjamín Damian is a 58-year-old male with a medical history of COPD, not on any home oxygen, has inhalers that he uses at home. States on Saturday, he started developing shortness of breath along with wheezing. It was worse when lying down. He also has cough with it but this is nonproductive and he has had a low-grade fever. Laboratory data reveals that he has an ABG consistent with COPD exacerbation and some mild acidosis with that and hypoxia. He is currently tolerating 4 L of oxygen, started on nebulizer steroids, antibiotic. Will also rule out influenza with flu swab. He also has some leukocytosis. Chest x-ray currently does not show any pneumonia. PAST MEDICAL HISTORY: 1. Hypertension. 2. COPD, no home oxygen. 3. Hyperlipidemia. 4. Fatty liver. 5. GERD. 6. History of GI bleed with colitis history, most recently in June 2018. SURGICAL HISTORY: 1. Tonsillectomy. 2. Colonoscopy with colon biopsy. 3. Teeth extraction. SOCIAL HISTORY: One pack per day smoker since the age of 16. Denies alcohol or illicit drug use. Lives at home with his who is at the bedside. FAMILY HISTORY: Mother hypertension. Father, diabetes, coronary disease, hypertension and skin cancer. ALLERGIES: No known drug allergies. HOME MEDICATIONS: 1. Advair 250/50 1 puff inhaled. 2. Amlodipine/ benazepril combo 1 capsule p.o. daily. 3. Albuterol inhaled every 4 hours. 4. Crestor 10 mg p.o. nightly. 5. Gemfibrozil 300 mg p.o. twice daily. 6. Omeprazole 40 mg p.o. daily. 7. Ranitidine 300 mg p.o. daily. 8. Vardenafil 20 mg p.o. daily. 9. [place] 10 one tablet p.o. every 4 hours p.r.n. 10. Tylenol 650 mg p.o. every 6 hours p.r.n. REVIEW OF SYSTEMS: Fourteen point review of systems are complete and all were negative for those mentioned above HPI. PHYSICAL EXAM: VITAL SIGNS: Temperature 98.9 degrees, heart rate 112, respiratory rate 22, blood pressure 167/92, O2 saturation 97% on 2 L nasal cannula. He was 99% on 4 L. GENERAL: Mr. Benjamín Damian is a 58-year-old male. He is in no acute distress and able to answer questions appropriately. HEENT: Atraumatic, normocephalic. Pupils equal, round, reactive to light. Extraocular movements intact. Mucous membranes are moist. NECK: Trachea midline. CARDIOVASCULAR: S1, S2. Tachycardic rate and rhythm. No rubs, gallops, murmurs. No lower extremity edema. +2 dorsalis and radial pulses. Negative JVD or carotid bruits. PULMONARY: Mild expiratory wheezes noted throughout with prolonged expiration. Chest wall tenderness with palpation. Tolerating 2 to 4 L nasal cannula. No accessory muscle use or work of breathing noted. GI: Soft, nontender, nondistended. Positive bowel sounds x4. EXTREMITIES: Moves all extremities equally. Full range of motion. NEUROLOGIC: A and O x3. Follows commands. Sensory is intact. SKIN: Warm, dry, intact. LABORATORY DATA: White blood cells 12,000, hemoglobin 14, hematocrit 46, platelet count 334,000. INR 0.97, PTT is 31. PH 7.31, pCO2 50, PO2 86, bicarb 23, base excess -1.8, saturation 93%, lactate 1.1. Sodium 141, potassium 4.4, BUN 16, creatinine 0.7, glucose 130, calcium 9.1, magnesium 0.9, bilirubin 0.20, AST 31, ALT 22. CK 952, troponin 17, proBNP 74, albumin 3.6, lactate 0.9 and 1.0, albumin 2.6. Urinalysis 30 protein, trace blood, otherwise negative. IMAGING: Chest x-ray no evidence of acute pathology. EKG sinus tachycardia rate 127, PTT is 38. ASSESSMENT/PLAN: 1. Chronic obstructive pulmonary disease exacerbation with acute hypoxemic respiratory failure and CO2 retention as well. Steroids and antibiotics nebulizers, and wean oxygen as tolerated. 2. Fever of unknown origin. We will get a flu swab, could be underlying pneumonia that is not found on chest x-ray. Otherwise, he is still on antibiotics. 3. Hyperlipidemia continue on medications. 4. Gastroesophageal reflux disease. Continue omeprazole, Ranitidine. 5. Hypertension. Continue amlodipine benazepril. 6. Deep venous thrombosis prophylaxis, sequential compression devices. 7. Tobacco abuse cessation discussed with 6 minutes conversation. Dictated by JEAN-PIERRE Chance for Geronimo Wing MD cc: JEAN-PIERRE Chance MD
[2019-02-23] MEDS: ADVAIR 250/50 DISKUS INH SCH ×2 (11:39→20:56)
--- NOTE | 2019-02-23 14:10 | PROGRESS NOTE ---
DATE: 02/23/2019 SUBJECTIVE: The patient is transferred from [place] to here in the hospital. He was tested for flu at [facility] on 02/20/2019. Apparently, flu test was negative at that time but he has tested positive today for the flu. He has had wheezing and cough. Feels a little better. He is on steroids and antibiotics in the form of Zosyn and vancomycin. OBJECTIVE: Vital Signs: T-max 100.2 degrees. Vital signs stable. O2 saturation 97% on 4 L nasal cannula. Cardiovascular: RRR without murmur. Lungs: Distant breath sounds. Rare wheeze. Good air movement. Extremities: No calf tenderness, cords or edema. Neurologic: Cranial nerves are intact. DIAGNOSTIC STUDIES: Chest x-ray today shows no acute pathology. Blood cultures x2 are negative. Influenza A positive. Influenza B negative. White count 12, platelets 334,000, hemoglobin 14.7. CMP unremarkable. CK total 952, CK index 0.5, MB 4.5, troponin high sensitivity 17, proBNP 74. Plasma lactate 0.9 ,1.0 and 0.8. Urinalysis 30 of protein, otherwise negative. ASSESSMENT: 1. Chronic obstructive pulmonary disease exacerbation. 2. History of tobacco abuse with the patient having stopped smoking recently. 3. Influenza. 4. Hyperlipidemia. 5. Hypertension. 6. Gastroesophageal reflux disease. 7. Hypercapnia. PLAN: We will continue IV steroids. Zosyn and vancomycin already started along with DuoNebs. Continue his oxygen supplementation via nasal cannula. We will add BiPAP at night. We will start him on Tamiflu. We will give him a nicotine patch. He says he has quit smoking recently and we will try to support him in his efforts. Continue PPI, his Lotrel, Lopid and Crestor home medications. cc: Bright Riddle MD
[2019-02-23] MEDS: TAMIFLU PO SCH ×2 (15:30→21:53)
[2019-02-23] MEDS: LOTREL 5/20 MG PO SCH (15:31)
[2019-02-23] MEDS: PATIENT'S OWN MED PO SCH (15:32)
[2019-02-23] MEDS: NICODERM PATCH TD SCH (17:38)
--- NOTE | 2019-02-23 20:10 | HISTORY AND PHYSICAL ---
ADDENDUM: Patient seen and examined by myself. Full note dictated and discussed with nurse practitioner. Patient presented to the hospital with shortness of breath, fever 100.3, tachycardia 105. States that he felt like an elephant was sitting in his chest, was having increased nonproductive cough, shortness of breath. He still continues to smoke a pack a day. He actually was seen in the ER yesterday with similar symptoms and he returned today due to worsening. Currently patient is in mild respiratory distress, he is pleasant. We are going to admit him to the hospital, place on antibiotics, breathing treatments, oxygen and will follow. cc: MD Bright Oconnor MD
[2019-02-23] MEDS: CRESTOR PO SCH (21:52)
[2019-02-23] MEDS: VANCOMYCIN 2,000 MG in NS 500 ML IV SCH (22:40)
[2019-02-24] MEDS: SOLU-MEDROL IV SCH ×3 (01:20→16:17)
[2019-02-24] MEDS: ZOSYN 2.25 GM in NS 50 ML IV SCH ×4 (02:55→22:37)
[2019-02-24] MEDS: DUONEB (A & A) INH SCH ×6 (04:13→23:39)
[2019-02-24] MEDS: PRILOSEC PO SCH (06:26)
[2019-02-24 07:09] LABS: HEMATOCRIT 45.5 % (42.0-52.0); HEMOGLOBIN 14.1 g/dL (14.0-18.0); IMM GRAN# 0.02 X1000 (0.0-0.04); IMM GRAN% 0.3 % (0.0-0.5); LYMPH# 0.48 X1000 (1.2-3.4); LYMPH% 6.8 % (20.5-51.1); MCH 29.7 PG (27-31); MONO% 9.9 % (1.7-9.3); MPV 8.9 FL (7.4-10.4); NEUT# 5.88 X1000 (1.4-6.5); PLT 254 X1000 (130-400); RBC 4.74 XMIL (4.7-6.1); RDW 13.9 % (11.5-14.5); WBC 7.08 X1000 (4.8-10.8)
[2019-02-24 07:26] LABS: AGAP 8; ALB/GLOB RATIO 1.2; ALBUMIN 3.5 g/dL (3.5-5.0); ALKALINE PHOSPHATASE 60 U/L (32-122); BUN 17 mg/dL (8-22); CALCIUM 8.8 mg/dL (8.8-10.2); CHLORIDE 99 mmol/L (98-107); COSMO 279; CREATININE 0.8 mg/dL (0.7-1.2); ESTIMATED GFR > 60; GLUCOSE 159 mg/dL (70-104); GOT 25 U/L (10-34); GPT 21 U/L (10-44); POTASSIUM 4.9 mmol/L (3.5-5.1); SODIUM 137 mmol/L (136-145); TCO2 30 mmol/L (25-35); TOTAL BILIRUBIN < 0.15 mg/dL (0.20-1.00); TOTAL PROTEIN 6.4 g/dL (6.3-8.3)
[2019-02-24] MEDS: ADVAIR 250/50 DISKUS INH SCH ×2 (07:46→19:59)
[2019-02-24] MEDS: VANCOMYCIN 2,000 MG in NS 500 ML IV SCH (10:01)
[2019-02-24] MEDS: PEPCID PO SCH (10:02)
[2019-02-24] MEDS: TAMIFLU PO SCH ×2 (10:02→22:37)
[2019-02-24] MEDS: NICODERM PATCH TD SCH (10:02)
[2019-02-24] MEDS: LOPID PO SCH ×2 (10:02→22:37)
[2019-02-24] MEDS: LOTREL 5/20 MG PO SCH (10:02)
[2019-02-24] MEDS: PATIENT'S OWN MED PO SCH (10:03)
[2019-02-24] MEDS: ROBITUSSIN-DM PO PRN ×3 (13:30→22:44)
--- NOTE | 2019-02-24 13:35 | PROGRESS NOTE ---
DATE: 02/24/2019 SUBJECTIVE: The patient has some coughing and is sore in his ribs from coughing, but overall feels a little better. OBJECTIVE: Vital signs: Afebrile, pulse 82, respirations 20, blood pressure 122/56, O2 saturation 98% on 4 L O2. Cardiovascular: Regular rate and rhythm. Lungs: Distant breath sounds. No major wheezes. Overall much improved. Abdomen: Nontender. Extremities: No calf tenderness, cords or edema. Neurologic: Nonfocal. Cranial nerves intact. LABORATORY DATA: White count down from 12 to 7, hemoglobin 14.1, platelets 254,000. CMP unremarkable. ASSESSMENT: 1. Chronic obstructive pulmonary disease exacerbation, improving. 2. History of tobacco abuse. 3. Influenza, on Tamiflu. 4. Hyperlipidemia. 5. Hypertension. 6. Gastroesophageal reflux disease. 7. Hypercapnia. PLAN: We will discontinue IV fluids. Continue IV steroids, DuoNeb. Continue Tamiflu, Zosyn, vancomycin. Ambulate. Add preventive dose of Lovenox. If continues to improve, may be able to discharge him home tomorrow. cc: Bright Riddle MD
[2019-02-24] MEDS: CRESTOR PO SCH (22:37)
[2019-02-25] MEDS: SOLU-MEDROL IV SCH (01:23)
[2019-02-25] MEDS: DUONEB (A & A) INH SCH ×6 (04:18→22:52)
[2019-02-25 05:12] LABS: ALLEN TEST YES; BE 5.5 mmoll (-3.0-3.0); BLOOD TYPE ARTERIAL; HCO3-(ACT) 29.2 mmoll (20.0-26.0); METHB 1.1 % (0.0-1.5); O2(CT) 19.7 mL/dL (15.0-23.0); O2HB 96.7 % (95.0-99.0); PO2(98.6) 123 mmHg (60-100); SAMPLE BLOOD; THB 14.4 g/dL (11.5-17.4); pH(98.6) 7.32 (7.35-7.45)
[2019-02-25 05:33] LABS: MODALITY BI PAP; PCO2(98.6) 66 mmHg (35-45)
[2019-02-25] MEDS: PRILOSEC PO SCH ×2 (05:38→06:48)
[2019-02-25] MEDS: ZOSYN 2.25 GM in NS 50 ML IV SCH (05:38)
[2019-02-25] MEDS: ROBITUSSIN-DM PO PRN ×2 (05:41→21:43)
[2019-02-25] MEDS: ADVAIR 250/50 DISKUS INH SCH ×2 (07:47→20:00)
[2019-02-25] MEDS ORDERED: NORCO-10 PO PRN (08:37)
[2019-02-25] MEDS: LOPID PO SCH ×2 (09:29→21:41)
[2019-02-25] MEDS: LOVENOX SUBQ SCH (09:30)
[2019-02-25] MEDS: PEPCID PO SCH (09:30)
[2019-02-25] MEDS: PATIENT'S OWN MED PO SCH (09:30)
[2019-02-25] MEDS: NICODERM PATCH TD SCH (09:30)
--- NOTE | 2019-02-25 09:33 | PROGRESS NOTE ---
DATE: 02/25/2019 SUBJECTIVE: The patient feeling better overall. He has some hypercapnia with pCO2 today at 66. OBJECTIVE: Afebrile. Vital signs stable.CV: RRR without murmur. Lungs: CTA. Distant breath sounds. Abdomen: Nontender. Active bowel sounds. Extremities: No calf tenderness, cords or edema. Neurologic: Cranial nerves are intact. No focal deficits. LABORATORY DATA: Data today shows ABG on 40% FiO2, BiPAP, pH 7.32, pCO2 66, PO2 123, HC03 29, O2 saturation 99%, and AA gradient 80. ASSESSMENT: 1. Chronic obstructive pulmonary disease exacerbation. 2. Hypercapnia. 3. History of tobacco abuse. 4. Influenza. 5. Hyperlipidemia. 6. Hypertension. 7. GERD. PLAN: We have decreased his oxygen from 40% to 28%, and will keep that going via nasal cannula during the day and BiPAP at night. He may use the BiPAP during the day when he is sleeping. We will change him over to oral steroids. Continue prophylactic doses of Lovenox. Leave off antibiotics of Zosyn and vancomycin while completing the Tamiflu. Continue DuoNeb's. Ambulate the patient. Likely discharge home in the morning if the pCO2 is declining. cc: Bright Riddle MD
[2019-02-25] MEDS: PREDNISONE PO SCH (09:43)
[2019-02-25] MEDS: VANCOMYCIN 2,000 MG in NS 500 ML IV SCH ×3 (09:59)
[2019-02-25] MEDS: TAMIFLU PO SCH ×3 (11:12→21:41)
[2019-02-25] MEDS: LOTREL 5/20 MG PO SCH ×2 (11:12)
[2019-02-25] MEDS: CRESTOR PO SCH (21:41)
[2019-02-26] MEDS: DUONEB (A & A) INH SCH ×2 (03:36→08:52)
[2019-02-26 05:21] LABS: ALLEN TEST YES; BE 7.4 mmoll (-3.0-3.0); BLOOD TYPE ARTERIAL; HCO3-(ACT) 30.7 mmoll (20.0-26.0); METHB 0.9 % (0.0-1.5); MODALITY BI PAP; O2(CT) 20.1 mL/dL (15.0-23.0); O2HB 97.2 % (95.0-99.0); PCO2(98.6) 50 mmHg (35-45); PO2(98.6) 147 mmHg (60-100); SAMPLE BLOOD; SAO2 99.2 % (95.0-100.0); THB 14.5 g/dL (11.5-17.4); pH(98.6) 7.43 (7.35-7.45)
[2019-02-26] MEDS: PRILOSEC PO SCH (06:23)
[2019-02-26 07:38] VITALS: BP 134/76
[2019-02-26] MEDS: ADVAIR 250/50 DISKUS INH SCH (08:51)
[2019-02-26] MEDS: NICODERM PATCH TD SCH (09:46)
[2019-02-26] MEDS: PATIENT'S OWN MED PO SCH (09:46)
[2019-02-26] MEDS: LOTREL 5/20 MG PO SCH (09:46)
[2019-02-26] MEDS: PREDNISONE PO SCH (09:46)
[2019-02-26] MEDS: TAMIFLU PO SCH (09:46)
[2019-02-26] MEDS: PEPCID PO SCH (09:46)
[2019-02-26] MEDS: LOPID PO SCH (09:46)
[2019-02-26] MEDS: LOVENOX SUBQ SCH (09:46)
--- NOTE | 2019-02-27 08:23 | DISCHARGE SUMMARY ---
ADMISSION DATE: 02/22/2019 DISCHARGE DATE: 02/26/2019 DIAGNOSES: 1. Chronic obstructive pulmonary disease exacerbation. 2. Hypercapnic respiratory failure, acute on chronic. 3. Influenza. 4. History of tobacco abuse. 5. Hyperlipidemia. 6. Hypertension. 7. Gastroesophageal reflux disease. 8. Obstructive sleep apnea on CPAP at home. PROCEDURES: Chest x-ray done 02/22 revealing no acute pathology. REASON FOR ADMISSION AND HOSPITAL COURSE: The patient is a 58-year-old white male followed in my medical practice. He has known moderate to severe COPD, and he came in with symptoms consistent with influenza. Flu test initially a couple of days prior to admission was done in the emergency room was negative at that time. Then, on this admission, he was noted to be influenza type A positive. The patient was admitted and started on breathing treatments of DuoNeb's q.4 hours, given IV steroids, and started on antibiotics. Then, it was found to be positive for the flu and was started on Tamiflu. The patient had [place] [id number], which defervesced to 7. Hemoglobin was normal at 14.1 and platelets 254,000. PT and PTT normal. CMP normal. Urinalysis normal. ABG on admission showed some hypercapnia with pCO2 of 52, pH 7.32, PO2 64, and that was on FiO2 of 28. Towards the end of the hospitalization despite BiPAP usage at night, the pCO2 elevated to 66. We cut back on his oxygen as the respiratory had increased the FiO2 of 40%. We decreased the oxygen, and by discharge, pCO2 had declined to 50, PO2 was 147, and that was on 32% FiO2. He does not have oxygen at home, but has CPAP at home. The patient was checked with ambulation without oxygen prior to discharge, and we will arrange for him to have home oxygen if his O2 sats were less than 88%. I doubt he will require that. We will check that at this time. Otherwise, he was doing well. His lungs were clear at discharge with distant breath sounds. Cardiovascular exam unremarkable with RRR. No murmur. Abdomen nontender, nondistended. He was stooling. Extremities with no calf tenderness, cords, or edema. Neurologic was nonfocal. The patient was without fever. He was ambulating in the room well. He had been on prophylactic DVT dose of Lovenox. DISCHARGE MEDICATIONS: 1. Crestor 10 mg p.o. at bedtime. 2. Advair 250/50 one puff b.i.d. 3. Omeprazole 40 mg p.o. daily. 4. Vardenafil 20 mg p.o. daily. 5. Lopid 600 mg p.o. b.i.d. 6. Lotrel 5/20 1 p.o. daily. 7. Combivent Respimat p.r.n. 8. Zantac 300 mg p.o. daily. 9. [place] 10 p.o. q.4 hours p.r.n. pain. 10. He was placed on nicotine patch at 14 mg topically to skin daily for 1 month, and then he will go down to 7 mg once daily for 1 month. We counseled him strongly in regard to tobacco cessation. He is on a prednisone taper from 40 mg daily over the next 10 to 14 days. He will use DuoNeb via nebulizer. He was given to use at home q.4 hours. Tamiflu will be continued for 2 more days at 75 mg p.o. b.i.d. cc: Bright Riddle MD
== END 2019-02-26 11:01 | disposition home or self-care (01) | DRG 871 ==
LOC: P.ED 21:46 → SUATTDRO 21:47 → P.EDIPHOLD 02-23 07:44 → 4N 02-23 10:04 → 3N 02-24 14:50
PROVIDERS: ADMIT Family Medicine; ATTEND Family Medicine